=== PATIENT | female | born 1965 | race African-American/Black ===

== ENCOUNTER 2016-04-27 09:58 | Emergency (ER) | payer OTHER ==
[2016-04-27 11:04] LABS: MANUAL DIFF NEEDED? NO
[2016-04-27 11:04] LABS: URINE SOURCE CLEAN CATCH
[2016-04-27 11:10] LABS: BILIRUBIN URINE NEGATIVE (NEGATIVE); BLOOD URINE 2+ (NEGATIVE); CLARITY CLEAR (CLEAR); COLOR YELLOW; GLUCOSE URINE NEGATIVE (NEGATIVE); LEUKOCYTES URINE NEGATIVE (NEGATIVE); NITRITE URINE NEGATIVE (NEGATIVE); PROTEIN URINE TRACE mg/dL (NEGATIVE); UROBILINOGEN URINE NORMAL
[2016-04-27 11:11] LABS: HEMATOCRIT 42.8 % (37.0-47.0); HEMOGLOBIN 13.6 g/dL (12.0-16.0); IMM GRAN# 0.01 X1000 (0.0-0.04); IMM GRAN% 0.2 % (0.0-0.5); LYMPH# 0.36 X1000 (1.2-3.4); LYMPH% 6.3 % (20.5-51.1); MCH 26.1 PG (27-31); MCHC 31.8 g/dL (33-37); MONO# 0.21 X1000 (0.11-0.59); MONO% 3.7 % (1.7-9.3); MPV 9.4 FL (7.4-10.4); NEUT% 89.8 % (42.2-75.2); PLT 268 X1000 (130-400); RBC 5.22 XMIL (4.2-5.4)
[2016-04-27 11:18] LABS: URINE CULTURE PL NEEDED? YES; URINE EPITHELIAL CELLS <10 /HPF (<10); URINE RBC <10 /HPF (<10); URINE WBC <10 /HPF (<10)
[2016-04-27] MEDS ORDERED: ZOFRAN IV ONE (11:19)
[2016-04-27] MEDS ORDERED: NS 1,000 ML IV ONE (11:19)
[2016-04-27 11:27] LABS: AGAP 12; ALBUMIN 4.5 g/dL (3.5-5.0); ALKALINE PHOSPHATASE 121 U/L (32-104); AMYLASE 48 U/L (20-200); BUN 17 mg/dL (8-22); CALCIUM 9.3 mg/dL (8.8-10.2); CHLORIDE 101 mmol/L (98-107); COSMO 278; GOT 19 U/L (10-30); GPT 20 U/L (10-36); LIPASE 16 U/L (13-60); POTASSIUM 3.7 mmol/L (3.5-5.1); SODIUM 138 mmol/L (136-145); TCO2 26 mmol/L (25-35); TOTAL PROTEIN 8.3 g/dL (6.3-8.3)
--- NOTE | 2016-04-27 11:29 | PROVIDER DOCUMENTATION ---
HPI-Abdominal Pain/GI Problem - General Source: patient - History of Present Illness-ABD Nature of Presenting Problems: Pt is 50 y/o F presents to the ED with epigastric pain. Pt states N/V/D. PT states symptoms started last night. Pt states having R knee pain as well. Pt states no injury to R knee. Pt denies blood in V or D. Pt denies F and chills. Abdominal Pain Onset Location: reports: epigastric Pain Radiation: reports: back Quality of Pain: reports: aching Severity in ED: reports: mild Onset/Duration: reports: last night Timing: reports: still present, intermittent Activities at Onset: reports: light activity Exposure to sick contacts?: No Modifying Factors: improves with: nothing Associated Symptoms: reports: diarrhea, fatigue, loss of appetite, nausea, vomiting, other (R knee pain). denies: anxiety, arm pain, back/neck pain, chest pain, constipation, cough, diaphoresis, dizziness, EENT symptoms, fever/ chills, genitourinary problems, headaches, heartburn, joint pain, malaise, muscle aches, sinus congestion/drainage, rash, seizure, shortness of breath, sensory/motor loss, pain with inspiration, swelling/mass in abdomen, syncope, weakness, trouble walking Last BM: unsure Dark Stools Present?: reports: none noticed Rectal Bleeding: reports: none # of Diarrhea Episodes: 10 Rectal Pain: reports: none # of Vomiting Episodes: 10 Emesis Description: reports: clear Bruising or Bleeding Gums?: No Similar Symptoms Previously?: No Recently seen or treated by another doctor?: No <Rosalva Leyva - Last Filed: 04/27/16 11:52> <Shannan Law - Last Filed: 04/27/16 11:58> - General Chief Complaint: Abdominal Pain Stated Complaint: ABD PAIN Time Seen by Provider: 04/27/16 11:15 Allergies/Adverse Reactions: Patient Allergies Allergy/AdvReac Type Severity Reaction Status Date / Time No Known Allergies Allergy Verified 04/27/16 10:12 Home Medications: Home Medication List Medication Instructions Recorded Confirmed Last Taken Type Hydrocodone/APAP 7.5 mg/325 mg 1 each PO Q6H PRN PRN #14 tablet 04/27/16 Unknown Rx [[place]-7.5] Promethazine [Phenergan] 25 mg PO Q6H PRN PRN #20 tablet 04/27/16 Unknown Rx Tamsulosin [Flomax] 0.4 mg PO DAILY #20 capsule 04/27/16 Unknown Rx Review of Systems - Adult - REVIEW OF SYSTEMS - ADULT Constitutional: denies: chills, fever Eyes: denies: blurred vision, double vision Ears, Nose, Mouth & Throat: denies: ear pain, nose pain, throat pain Cardiovascular: denies: chest pain, heart murmur, irregular heart rate Respiratory: denies: cough, shortness of breath, wheezing Gastrointestinal: reports: abdominal pain (epigastric), diarrhea, nausea, poor appetite, vomiting Genitourinary: denies: dysuria, hematuria Musculoskeletal: reports: other (R knee pain). denies: bone pain, joint pain, neck pain Integumentary: denies: hives, itching Neurological: denies: dizziness/vertigo, headache/migraines Psychiatric: reports: no symptoms reported Endocrine: reports: no symptoms reported Hematologic/Lymphatic: reports: no symptoms reported Allergic/Immunologic: reports: no symptoms reported All Other Systems: Reviewed and Negative <Rosalva Leyva - Last Filed: 04/27/16 11:52> Past History - Adult - PAST MEDICAL HISTORY-ADULT Review of Records: reports: Nursing Assessment Review, Medications Reviewed, Social history reviewed & non-contributory. Major Childhood Illnesses: reports: denies history Cardiovascular: reports: denies history Respiratory: reports: denies history Gastrointestinal: reports: denies history Obstetrical/Gynecological: reports: denies history Genitourinary: reports: denies history Musculoskeletal: reports: denies history Neurological: reports: denies history Endocrine/Immune: reports: denies history Other Conditions: reports: denies history - PRIOR SURGERIES/PROCEDURES Surgical/Procedure History: reports: back/neck (back ) - IMMUNIZATION STATUS Childhood Immunizations: See Nurse Assessment Flu Vaccine: See Nurse Assessment - FAMILY HISTORY Family History: reviewed, not pertinent - SOCIAL HISTORY Smoking: denies Substance Use: denies Living Situation: family <Rosalva Leyva - Last Filed: 04/27/16 11:52> Physical Exam-General - PHYSICAL EXAM-ADULT Initial Vital Signs Reviewed: Yes - CONSTITUTIONAL General Appearance: appears well, alert, no apparent distress - EYES Eyes: PERRL/EOMI, pink conjunctivae, fundi clear, no AV nicking - HEAD, EARS, NOSE, MOUTH & THROAT HENMT: normocephalic/atraumatic, moist mucous membranes, normal ENT inspection, TMs normal, pharynx normal - NECK Neck: non-tender, full range of motion, supple, normal inspection - RESPIRATORY Respiratory: chest non-tender, lungs clear, normal breath sounds, no pleuratic chest pain, no respiratory distress, no accessory muscle use - CARDIOVASCULAR Cardiovascular: normal peripheral pulses, regular rate, rhythm, no edema, no gallop, no JVD, no murmur - GASTROINTESTINAL (ABDOMEN) Abdominal Exam: normal bowel sounds, non tender, soft, no organomegaly, no pulsatile mass - LYMPHATIC Lymphatic: no adenopathy - MUSCULOSKELETAL Back Exam: normal inspection, no CVA tenderness, no vertebral tenderness Extremity: normal range of motion, normal gait, normal inspection, no pedal edema, no calf tenderness, normal capillary refill, tenderness (R anterior medial knee) - SKIN Integumentary: normal color, normal turgor, warm/dry - NEUROLOGIC Neurologic: grossly normal - PSYCHIATRIC Psych/Mental Status: normal mood/affect, oriented x 3 <Rosalva Leyva - Last Filed: 04/27/16 11:52> Progress - PLAN OF CARE/RESULTS Progress/Plan/Lab Results: Laboratory Tests 04/27/16 04/27/16 04/27/16 10:15 11:03 11:03 WBC 5.67 RBC 5.22 Hgb 13.6 Hct 42.8 MCV 82.0 MCH 26.1 L MCHC 31.8 L RDW Std Deviation 13.5 Plt Count 268 MPV 9.4 Immature Gran % (Auto) 0.2 Neut % (Auto) 89.8 H Lymph % (Auto) 6.3 L [place] % (Auto) 3.7 Eos % (Auto) 0.0 Baso % (Auto) 0.0 Immature Gran # (Auto) 0.01 Neut # (Auto) 5.09 Lymph # (Auto) 0.36 L [place] # (Auto) 0.21 Eos # (Auto) 0.00 Baso # (Auto) 0.00 Sodium 138 Potassium 3.7 Chloride 101 Carbon Dioxide 26 Anion Gap 12 BUN 17 Creatinine 0.6 Estimated GFR/1.73 m2 > 60 BUN/Creatinine Ratio 28 Glucose 120 H Calculated Osmolality 278 Calcium 9.3 Total Bilirubin 0.40 AST 19 ALT 20 Alkaline Phosphatase 121 H Total Protein 8.3 Albumin 4.5 Globulin 4.0 Albumin/Globulin Ratio 1.0 Amylase 48 Lipase 16 Urine Source CLEAN CATCH Urine Color YELLOW Urine Clarity CLEAR Urine pH 6.0 Ur Specific [place] 1.020 Urine Protein TRACE A Urine Ketones NEGATIVE Urine Blood 2+ A Urine Nitrite NEGATIVE Urine Bilirubin NEGATIVE Urine Urobilinogen NORMAL Urine Microscopic RBC <10 Urine WBC NEGATIVE Urine Microscopic WBC <10 Ur Epithelial Cells <10 Urine Bacteria 2+ Urine Glucose NEGATIVE Orders Category Date Time Status Saline Loc NOW Care 04/27/16 11:19 Active NPO Diet 04/27/16 10:13 Active AMYLASE [CHEM] Stat Lab 04/27/16 11:03 Completed CBC WITH ELECTRONIC DIFF [HEME] Stat Lab 04/27/16 11:03 Completed COMPREHENSIVE METABOLIC PANEL [CHEM] Stat Lab 04/27/16 11:03 Completed LIPASE [CHEM] Stat Lab 04/27/16 11:[address] W/POSS RFLX CULT [URINALYSIS] Stat Lab 04/27/16 10:15 Completed URINE CULTURE [RM] Routine Lab 04/27/16 11:18 Ordered 0.9% Sodium Chloride Inj [Ns] 1,000 ml Med 04/27/16 11:19 Active IV 999 mls/hr Ondansetron [Zofran] Med 04/27/16 11:19 Discontinued 4 mg IV NOW ONE Vital Signs - 24 hr 04/27/16 10:08 Temperature 98.3 F Pulse Rate 92 H Respiratory 17 Rate Blood Pressure 140/86 O2 Sat by Pulse 99 Oximetry Laboratory Tests 04/27/16 04/27/16 04/27/16 10:15 11:03 11:03 WBC 5.67 RBC 5.22 Hgb 13.6 Hct 42.8 MCV 82.0 MCH 26.1 L MCHC 31.8 L RDW Std Deviation 13.5 Plt Count 268 MPV 9.4 Immature Gran % (Auto) 0.2 Neut % (Auto) 89.8 H Lymph % (Auto) 6.3 L [place] % (Auto) 3.7 Eos % (Auto) 0.0 Baso % (Auto) 0.0 Immature Gran # (Auto) 0.01 Neut # (Auto) 5.09 Lymph # (Auto) 0.36 L [place] # (Auto) 0.21 Eos # (Auto) 0.00 Baso # (Auto) 0.00 Sodium 138 Potassium 3.7 Chloride 101 Carbon Dioxide 26 Anion Gap 12 BUN 17 Creatinine 0.6 Estimated GFR/1.73 m2 > 60 BUN/Creatinine Ratio 28 Glucose 120 H Calculated Osmolality 278 Calcium 9.3 Total Bilirubin 0.40 AST 19 ALT 20 Alkaline Phosphatase 121 H Total Protein 8.3 Albumin 4.5 Globulin 4.0 Albumin/Globulin Ratio 1.0 Amylase 48 Lipase 16 Urine Source CLEAN CATCH Urine Color YELLOW Urine Clarity CLEAR Urine pH 6.0 Ur Specific [place] 1.020 Urine Protein TRACE A Urine Ketones NEGATIVE Urine Blood 2+ A Urine Nitrite NEGATIVE Urine Bilirubin NEGATIVE Urine Urobilinogen NORMAL Urine Microscopic RBC <10 Urine WBC NEGATIVE Urine Microscopic WBC <10 Ur Epithelial Cells <10 Urine Bacteria 2+ Urine Glucose NEGATIVE <Rosalva Leyva - Last Filed: 04/27/16 11:52> - PLAN OF CARE/RESULTS Progress/Plan/Lab Results: Vital Signs Temp Pulse Resp BP Pulse Ox 04/27/16 10:08 98.3 F 92 H 17 140/86 99 No Known Allergies Allergy (Verified 04/27/16 10:12) No Home Medications 04/27/16 Dietary Diet NPO Start WedApr 27 [id number] Laboratory 04/27/16 04/27/16 04/27/16 11:03 11:03 10:15 WBC 5.67 RBC 5.22 Hgb 13.6 Hct 42.8 MCV 82.0 MCH 26.1 L MCHC 31.8 L RDW Std Deviation 13.5 Plt Count 268 MPV 9.4 Immature Gran % (Auto) 0.2 Neut % (Auto) 89.8 H Lymph % (Auto) 6.3 L [place] % (Auto) 3.7 Eos % (Auto) 0.0 Baso % (Auto) 0.0 Immature Gran # (Auto) 0.01 Neut # (Auto) 5.09 Lymph # (Auto) 0.36 L [place] # (Auto) 0.21 Eos # (Auto) 0.00 Baso # (Auto) 0.00 Sodium 138 Potassium 3.7 Chloride 101 Carbon Dioxide 26 Anion Gap 12 BUN 17 Creatinine 0.6 Estimated GFR/1.73 m2 > 60 BUN/Creatinine Ratio 28 Glucose 120 H Calculated Osmolality 278 Calcium 9.3 Total Bilirubin 0.40 AST 19 ALT 20 Alkaline Phosphatase 121 H Total Protein 8.3 Albumin 4.5 Globulin 4.0 Albumin/Globulin Ratio 1.0 Amylase 48 Lipase 16 Urine Source CLEAN CATCH Urine Color YELLOW Urine Clarity CLEAR Urine pH 6.0 Ur Specific [place] 1.020 Urine Protein TRACE A Urine Ketones NEGATIVE Urine Blood 2+ A Urine Nitrite NEGATIVE Urine Bilirubin NEGATIVE Urine Urobilinogen NORMAL Urine Microscopic RBC <10 Urine WBC NEGATIVE Urine Microscopic WBC <10 Ur Epithelial Cells <10 Urine Bacteria 2+ Urine Glucose NEGATIVE Orders Category Date Time Status Saline Loc NOW Care 04/27/16 11:19 Active NPO Diet 04/27/16 10:13 Active RENAL STONE SEARCH [CT] Stat Exams 04/27/16 11:32 Taken AMYLASE [CHEM] Stat Lab 04/27/16 11:03 Completed CBC WITH ELECTRONIC DIFF [HEME] Stat Lab 04/27/16 11:03 Completed COMPREHENSIVE METABOLIC PANEL [CHEM] Stat Lab 04/27/16 11:03 Completed LIPASE [CHEM] Stat Lab 04/27/16 11:[address] W/POSS RFLX CULT [URINALYSIS] Stat Lab 04/27/16 10:15 Completed URINE CULTURE [RM] Routine Lab 04/27/16 11:18 Ordered 0.9% Sodium Chloride Inj [Ns] 1,000 ml Med 04/27/16 11:19 Active IV 999 mls/hr Morphine Med 04/27/16 11:56 Discontinued 2 mg IV NOW ONE Ondansetron [Zofran] Med 04/27/16 11:19 Discontinued 4 mg IV NOW ONE - CT/MRI 1 CT Study: Renal Stone Impression: Abnormal (1 mm left ureteral stone, no hydro. otherwise nad per Dr. Delatorre, radiology) <Shannan Law - Last Filed: 04/27/16 11:58> Departure <Rosalva Leyva - Last Filed: 04/27/16 11:52> - Departure Time of Disposition Order: 11:58 Certified Medical Emergency: Emergent <Shannan Law - Last Filed: 04/27/16 11:58> - Departure DIAGNOSIS: Ureteral calculus, left Disposition: HOME 01 Condition: Stable Prescriptions: Tamsulosin [Flomax] 0.4 mg PO DAILY #20 capsule Hydrocodone/APAP 7.5 mg/325 mg [[place]-7.5] 1 each PO Q6H PRN PRN #14 tablet PRN Reason: Pain Promethazine [Phenergan] 25 mg PO Q6H PRN PRN #20 tablet PRN Reason: Nausea Referrals: Javier Cruz MD [Primary Care Provider] - Attestation - Scribe Verification/Attestation Scribe:: Rosalva Leyva Acting as Scribe for:: Shannan Law Scribe documention review:: This chart was documented by a scribe and accurately reflects the service the provider performed and the decisions made by the provider. <Rosalva Leyva - Last Filed: 04/27/16 11:52> Physician Attestation
[2016-04-27] MEDS ORDERED: MORPHINE IV ONE (11:56)
--- NOTE | 2016-04-27 12:18 | Diag Imaging Result Document ---
PROCEDURE NAME: RENAL STONE SEARCH - 04/27/[address] WITHOUT ORAL AND INTRAVENOUS CONTRAST. DOSE REDUCTION PROTOCOL. RENAL STONE EXAM. FINDINGS: The upper abdomen is not included on this study. The spleen is not enlarged. The gallbladder is partly contracted. No inflammation about the pancreas. Normal adrenal glands. No focal hepatic abnormality on the portion included on this noncontrasted study. Tiny nonobstructing left lower pole renal stone. No hydronephrosis. Normal aorta. There has been prior surgery to the lower lumbar spine. No bowel obstruction. No inflammation about the cecum. No abscess. The urinary bladder is mildly distended. Normal uterus. Mildly prominent inguinal lymph nodes measuring up to 15 mm. IMPRESSION: Tiny nonobstructing left renal stone, but no hydronephrosis.
[2016-04-27 12:56] VITALS: BP 136/80
== END 2016-04-27 13:05 | disposition home or self-care (01) ==
LOC: P.ED 09:58
DX: N20.1 Calculus of ureter (principal); R10.13 Epigastric pain; R19.7 Diarrhea, unspecified; R11.2 Nausea with vomiting, unspecified; M25.561 Pain in right knee; R53.83 Other fatigue
CPT/HCPCS: 74176; 80053; 81001; 82150; 83690; 85025; 87088; 96361; 96374; 96375; J2270; J2405; J7030